=== PATIENT | male | born 1990 | race Caucasian/White ===

== ENCOUNTER 2016-12-21 17:05 | Emergency (ER) | payer OTHER ==
--- NOTE | 2016-12-21 17:10 | ED Physician Documentation ---
Hand Injury - HISTORIAN Historian: patient - HPI Stated Complaint: laceration Chief Complaint: Hand Injury Additional Information: laceration distal R 3rd finger Onset: just prior to arrival Where: home Severity: mild Context: laceration Location of Injury: R fingers Modifying Factors: none Further Comments: no - ROS CONST: other (sounds / smells inebriated) GI/: denies: problems urinating NEURO: none CVS/RESP: none LNMP: denies: EYES/ENT: none MS/SKIN/LYMPH: none - PAST HX Past History: none Allergies/Adverse Reactions: Allergies Allergy/AdvReac Type Severity Reaction Status Date / Time No Known Drug Allergies Allergy Verified 12/21/16 17:22 - SOCIAL HX Smoking History: cigarettes Alcohol Use: heavy Drug Use: none - FAMILY HX Family History: none - VITAL SIGNS Vital Signs: Vital Signs Temp Pulse Resp BP Pulse Ox 132/88 05/01/16 22:51 - REVIEWED ASSESSMENTS Nursing Assessment Reviewed: Yes Vitals Reviewed: Yes Procedures Wound Location: upper extremity Wound's Depth, Shape: irregular, flap Wound Explored: clean Betadine Prep?: Yes Anesthesia: 1% Lidocaine Wound Debrided: minimal Wound Repaired With: sutures Suture Size/Type: 4:0, nylon Number of Sutures: 5 Layer Closure?: No Sterile Dressing Applied?: Yes Splint Applied?: No Sling Applied?: No Hand Injury Physical Exam - Exam General Appearance: no acute distress, other (speaks inebriated) Wrist: normal inspection Neuro: sensation nml Vascular: no vascular compromise Tendons: tendon function nml Forearm/Elbow/Arm: uninjured above wrist Skin: warm/dry, normal color Head/ENT: nml inspection Neck/Back: nml inspection Resp/CVS: no resp. distress Abdomen: non-tender Discharge Clincal Impression: Laceration of finger of right hand Qualifiers: Encounter type: initial encounter Qualified Code(s): S61.219A - Laceration without foreign body of unspecified finger without damage to nail, initial encounter Condition: Good Disposition: 01 HOME, SELF-CARE Decision to Admit: NO Date of Decison to Admit: 12/21/16 Decision Time: 19:04
[2016-12-21] MEDS ORDERED: BUPIVACAINE HCL/PF 5 MG/ML 10ML VIAL IJ ONE (17:21)
[2016-12-21 19:03] VITALS: BP 102/70
== END 2016-12-21 19:06 | disposition home or self-care (01) ==
LOC: ED 17:05
DX: S61.219A Laceration without foreign body of unspecified finger without damage to nail, initial encounter (principal); X58.XXXA Exposure to other specified factors, initial encounter; Y93.9 Activity, unspecified; Y99.9 Unspecified external cause status; F17.210 Nicotine dependence, cigarettes, uncomplicated
CPT/HCPCS: 12001; 99283

== ENCOUNTER 2017-01-25 11:19 | Emergency (ER) | payer OTHER ==
--- NOTE | 2017-01-25 11:58 | ED Physician Documentation ---
Overdose - HISTORIAN Historian: patient, parent - HPI Stated Complaint: intoxicated Chief Complaint: Overdose Additional Information: found in public intoxicated. ambulance brought him here. Dad here, doesn't know what to do with him anymore. he has been thru many treatments. but refuses. Dad is here but doesn't know what to do with him. Patient wants to be discharged. dad will take him home. Onset: hours Duration: gradual onset Intent: no answer Severity: moderate Situational Problems: Yes Related To: other Further Comments: no - Associated Symptoms Symptoms: depressed, angry, frustrated Suicidal: denies: suicidal thoughts Ingestion: denies: suicide attempt Mechanism: overdose (drinks constantly) - ROS CONST: no problems NEURO/PSYCH: none EYES/ENT: none CVS/RESP: none GI/: denies: nausea, vomiting MS/SKIN/LYMPH: denies: joint pain - PAST HX Psychiatric problems: depression DVT/PE Risk Factors: none Lung, Cardiac, DM: denies: A-Fib Surgical History: no surgical history Allergies/Adverse Reactions: Allergies Allergy/AdvReac Type Severity Reaction Status Date / Time No Known Drug Allergies Allergy Verified 12/21/16 17:22 - Social HX Smoking History: cigarettes Marital Status: single Drug Use: none - Family HX Family HX: denies: mental illness - VITAL SIGNS Vital Signs: Vital Signs Temp Pulse Resp BP Pulse Ox 102/70 12/21/16 19:01 - REVIEWED ASSESSMENTS Nursing Assessment Reviewed: Yes Vitals Reviewed: Yes Progress - Results/Orders Results/Orders: disussed with parent the possibility of getting court ordered antibuse. He will talk to nuclear medicine specialist about it. Overdose Physical Exam - Physical Exam General Appearance: no acute distress, alert ENT: nml ENT inspection Eyes: EOM's intact Mental Status: No: hostile Suicide Attempts: denies Orientation: nml x3 Cranial Nerves: CN's intact as tested Sensory, Motor: nml motor response Neck: normal inspection Respiratory: no resp distress CVS: reg rate & rhythm, equal pulses, occasional extrasystoles Skin: warm/dry, normal color Extremities: non-tender Discharge Clincal Impression: ETOH abuse Alcohol intoxication Qualifiers: Complication of substance-induced condition: uncomplicated Qualified Code(s): F10.920 - Alcohol use, unspecified with intoxication, uncomplicated Referrals: Glynn Holman MD [Primary Care Provider] - 2 Days Condition: Good Disposition: HOME, SELF-CARE Decision to Admit: NO Date of Decison to Admit: 01/25/17 Decision Time: 11:57
[2017-01-25 12:42] VITALS: BP 132/94
== END 2017-01-25 12:04 | disposition home or self-care (01) ==
LOC: ED 11:19
DX: F10.920 Alcohol use, unspecified with intoxication, uncomplicated (principal)
CPT/HCPCS: 99283

== ENCOUNTER 2017-07-16 17:49 | Emergency (ER) | payer OTHER ==
[2017-07-16 18:04] VITALS: BP 125/95
--- NOTE | 2017-07-16 18:05 | ED Physician Documentation ---
Sore Throat/Dental Pain - HISTORIAN Historian: patient - HPI Stated Complaint: Dental Pain Chief Complaint: Dental Pain Onset: hours (1) Context: Fractured Tooth Associated Symptoms: denies: fever, chills, sore throat, mild Further Comments: yes (wants meds for his pain . Denies a fever. He is on amoxicillin and T3) - ROS CONST: no problems CVS/RESP: none MS/SKIN/LYMPH: denies: muscle aches, rash, leg swelling NEURO/PSYCH: headache - PAST HX Past History: none Other History: none Immunizations: referred to PCP Allergies/Adverse Reactions: Allergies Allergy/AdvReac Type Severity Reaction Status Date / Time No Known Drug Allergies Allergy Verified 01/25/17 12:39 Penicillins Allergy Verified 07/16/17 18:05 Home Medications: Ambulatory Orders Medication Instructions Recorded NK [NK] 07/16/17 - SOCIAL HX Smoking History: cigarettes Alcohol Use: other (denies) Drug Use: other (denies ) - FAMILY HX Family History: No - VITAL SIGNS Vital Signs: Vital Signs Temp Pulse Resp BP Pulse Ox 98.1 F 125 H 20 125/95 96 07/16/17 17:50 07/16/17 17:50 07/16/17 17:50 07/16/17 17:50 07/16/17 17:50 - REVIEWED ASSESSMENTS Nursing Assessment Reviewed: Yes Vitals Reviewed: Yes Dental Pain Physical Exam - EXAM General Appearance: no acute distress, alert Head/Neck: head nml inspection Eyes: eyes nml inspection Mouth/Throat: other (dental decay and several broken teeth ) Respiratory: no resp. distress, breath sounds nml, respiratory distress CVS: tachycardia (denies any chest pain ) Abdomen: soft Extremities: non-tender Skin: other (open skin areas on both arms ) Neuro/Psych: No: weakness, anxiety Discharge Clincal Impression: Dental abscess Referrals: Primary Doctor,No [Primary Care Provider] - 2 Days Condition: Stable Disposition: 07 AGAINST MEDICAL ADVICE Decision to Admit: NO Date of Decison to Admit: 07/16/17 Decision Time: 18:15
== END 2017-07-16 18:10 | disposition left against medical advice (07) ==
LOC: ED 17:49
DX: K08.89 Other specified disorders of teeth and supporting structures (principal); Z53.21 Procedure and treatment not carried out due to patient leaving prior to being seen by health care provider
CPT/HCPCS: 99283

== ENCOUNTER 2017-12-20 23:53 | Emergency (ER) | payer SELFPAY ==
--- NOTE | 2017-12-21 00:38 | ED Physician Documentation ---
Upper Respiratory Symptoms - HISTORIAN Historian: patient - HPI Stated Complaint: soa Chief Complaint: Cough/ Upper Respiratory - ROS CONST/EYES: denies: weakness CVS/RESP: none LYMPH: denies: leg swelling, rash, swollen glands, ankle swelling, other GI/: none NEURO/PSYCH: denies: fainting, dizziness, confusion, anxiety, depression, other MS/SKIN: denies: joint pain, muscle aches, rash, other - PAST HX Lung Disease: none PE Risk Factors: none Other History: other (anxiety) Allergies/Adverse Reactions: Allergies Allergy/AdvReac Type Severity Reaction Status Date / Time Penicillins Allergy Verified 12/21/17 00:09 Home Medications: Ambulatory Orders Medication Instructions Recorded Hydroxyzine Pamoate [Vistaril] 25 mg PO D 12/21/17 - SOCIAL HX Smoking History: cigarettes Alcohol Use: heavy - FAMILY HX Family History: denies: none - VITAL SIGNS Vital Signs: Vital Signs Temp Pulse Resp BP Pulse Ox 97.5 F L 115 H 20 151/105 97 12/20/17 23:53 12/20/17 23:53 12/20/17 23:53 12/20/17 23:53 12/20/17 23:53 - REVIEWED ASSESSMENTS Nursing Assessment Reviewed: Yes Vitals Reviewed: Yes ED Results Lab/Radiology - Radiology Radiology Impressions: Ap portable upright radiographs of the chest Clinical history: Shortness of breath Technique: anterior /posterior portable upright Findings: The lung garza are hyperinflated and clear. The heart and mediastinal structures are normal. The bony thorax is unremarkable. No pneumothorax or pleural effusion is seen. Impression: Hyperinflation Negative for infiltrate Electronically signed on December 21, 2017 12:27:15 AM CDT by: Jacinto Jordan - Orders Orders: ED Orders Category Date Time Status CHEST 2VIEW [RAD] Stat Exams 12/21/17 Ordered UA W/MICRO IF INDICATED Stat Lab 12/21/17 00:36 Ordered Urine drug screen [DRUG SCREEN URINE MEDICAL ONLY] Stat Lab 12/21/17 00:36 Ordered Upper Respiratory Symptoms - EXAM General Appearance: anxious, other (strong smell of ETOH) EENT: eyes nml inspection, nml ENT inspection, lids & conjunct. nml, PERRL, ear nml, rhinorrhea, pharynx nml, airway nml, pharyngeal erythema (mild). No: tonsillar exudate, tonsillar swelling Respiratory: no resp. distress, breath sounds nml, no pain on inspiration, speaks full sentences, no pleuritic chest pain Abdomen: non-tender, no organomegaly, nml bowel sounds, no distention CVS: heart sounds normal, equal pulses, no murmur, no gallop, PMI nml, no JVD, no friction rub, tachycardia Skin: color nml, no rash, warm,dry Extremities: non-tender, normal range of motion, no evidence of injury, no edema , J, [employer] Neuro/Psych: oriented x3, neuro intact, mood/affect nml, CN's nml as tested Discharge Clincal Impression: Seasonal allergic rhinitis Qualifiers: Allergic rhinitis trigger: pollen Qualified Code(s): J30.1 - Allergic rhinitis due to pollen Referrals: Primary Doctor,No [Primary Care Provider] - 2 Days Condition: Stable Disposition: 01 HOME, SELF-CARE Decision to Admit: NO Decision Time: 00:37
[2017-12-21 01:00] VITALS: BP 149/22
[2017-12-21 06:40] LABS: CANNABINOIDS NEGATIVE ng/mL (< 50); METHYLENEDIOXYMETHAMPHETAMINE NEGATIVE ng/mL (<500)
--- NOTE | 2017-12-21 06:45 | Diagnostic Imaging Report ---
SHAY THURMAN (INSTRUCTIONAL COACH) - ER [facility] [id number] [facility] [address] [address] [place], [place]. [address] Report Submission Date: December 21, 2017 12:27:15 AM CDT Patient Study Name: RANJEET BETH Date: December 21, 2017 12:11:45 AM CDT Modality Type: DX Gender: M Description: CHEST : 86 Institution: [facility] Physician: SHAY THURMAN (INSTRUCTIONAL COACH) - ER Ap portable upright radiographs of the chest Clinical history: Shortness of breath Technique: anterior /posterior portable upright Findings: The lung garza are hyperinflated and clear. The heart and mediastinal structures are normal. The bony thorax is unremarkable. No pneumothorax or pleural effusion is seen. Impression: Hyperinflation Negative for infiltrate Electronically signed on December 21, 2017 12:27:15 AM CDT by: Jacinto CROOK
== END 2017-12-21 00:40 | disposition home or self-care (01) ==
LOC: ED 23:53
DX: J30.1 Allergic rhinitis due to pollen (principal)
CPT/HCPCS: 71046; 80377; 99282; G0481

== ENCOUNTER 2018-04-23 11:09 | Emergency (ER) | payer OTHER ==
[2018-04-23] MEDS ORDERED: 0.9 % SODIUM CHLORIDE 1,000 ML IV ONE (11:30)
--- NOTE | 2018-04-23 11:37 | ED Physician Documentation ---
General Adult - HISTORIAN Historian: patient - HPI Stated Complaint: cough, fatigue, bruise, sweating Chief Complaint: Cough/ Upper Respiratory Onset: days ago (2) Timing: still present Severity: mild Further Comments: yes (Per his report he is having "hot flashes" he feels that he has had a fever and then it drops and he sweats. He also reports a cough that is dry x 1 week. He has a bruise on his left leg/groin he is not sure where this started and it does have pain to touch. He has fatigue.) - ROS CONST: fever, sweating EYES/ENT: none CVS/RESP: cough. denies: chest pain GI/: none MS/SKIN/LYMPH: other (he has a large bruise on his right leg /groin). denies: rash NEURO/PSYCH: denies: headache, fainting, dizziness, tingling, numbness, difficulty walking, difficulty with speech - PAST HX Past History: other (anxiety and GERD ) Surgeries/Procedures: none Immunizations: UTD Allergies/Adverse Reactions: Allergies Allergy/AdvReac Type Severity Reaction Status Date / Time Penicillins Allergy Verified 04/23/18 11:27 Home Medications: Ambulatory Orders Medication Instructions Recorded Hydroxyzine Pamoate [Vistaril] 25 mg PO D 12/21/17 - SOCIAL HX Smoking History: cigarettes Alcohol Use: occasionally Drug Use: none - FAMILY HX Family History: No - VITAL SIGNS Vital Signs: Vital Signs Temp Pulse Resp BP Pulse Ox 149/22 12/21/17 00:53 - REVIEWED ASSESSMENTS Nursing Assessment Reviewed: Yes Vitals Reviewed: Yes ED Results Lab/Radiology - Radiology Radiology Impressions: Chest two views History: Chest pain and cough for 1 week Findings: The lungs are well expanded and clear. Heart size and pulmonary vascularity are normal. Osseous structures are unremarkable. There is no pleural effusion. Impression: Normal. Electronically signed on Apr 23, 2018 12:33:46 PM CDT by: Taqueria Kwon - Orders Orders: ED Orders Category Date Time Status Place IV Lock 1T Care 04/23/18 11:30 Active CBC/PLATELET/DIFF Routine Lab 04/23/18 Ordered CMP Routine Lab 04/23/18 Ordered DRUG SCREEN URINE MEDICAL ONLY Routine Lab 04/23/18 Ordered URINALYSIS Routine Lab 04/23/18 Ordered 0.9 % Sodium Chloride [Normal Saline] 1,000 ml Med 04/23/18 11:30 Active IV Q1H General Adult Physical Exam - PHYSICAL EXAM GENERAL APPEARANCE: no distress EENT: eye inspection normal, ENT inspection normal, no signs of dehydration, JAH. No: pharyngeal erythema, abnormal TM NECK: normal inspection, thyroid normal RESPIRATORY: no resp distress, chest non-tender, breath sounds normal CVS: reg rate & rhythm, heart sounds normal, equal pulses, no murmur ABDOMEN: soft, normal bowel sounds BACK: normal inspection SKIN: warm/dry, other (large yellow/green bruise on right groin/right upper leg ) NEURO: oriented X3, CN's nml as tested, motor nml, sensation nml, mood/affect nml Discharge Clincal Impression: Hypertension Qualifiers: Hypertension type: unspecified Qualified Code(s): I10 - Essential (primary) hypertension Referrals: Primary Doctor,No [Primary Care Provider] - 2 Days Additional Instructions: 1. Clonidine 0.1 mg take 1 by mouth daily for hypertension Top number over 150 and bottom number over 90 2. See PCP in 2-4 days for follow up 3. Increase fluids 4. Return to ER for any concerns Condition: Stable Disposition: 01 HOME, SELF-CARE Decision to Admit: NO Date of Decison to Admit: 04/23/18 Decision Time: 14:14
[2018-04-23 12:12] LABS: BASOPHILS % 0.5 (0.0-1.5); EOSINOPHILS % 2.1 % (0.0-6.8); MEAN CORPUSCULAR VOLUME 92.6 fl (80.0-100.0)
[2018-04-23 12:13] LABS: NEUTROPHILS # 5.8 # k/uL (1.4-7.7)
[2018-04-23 12:33] LABS: eGFR (African) > 60; eGFR (Non-African) > 60
[2018-04-23] MEDS ORDERED: CloNIDine HCL 0.1 MG TABLET PO ONE (12:52)
--- NOTE | 2018-04-23 12:53 | Diagnostic Imaging Report ---
YUE COSTA [facility] [address] [facility] [address] [place], [place]. [address] Report Submission Date: Apr 23, 2018 12:33:46 PM CDT Patient Study Name: RANJEET BETH Date: Apr 23, 2018 12:11:17 PM CDT Modality Type: DX Gender: M Description: CHEST : 86 Institution: [facility] Physician: YUE COSTA Chest two views History: Chest pain and cough for 1 week Findings: The lungs are well expanded and clear. Heart size and pulmonary vascularity are normal. Osseous structures are unremarkable. There is no pleural effusion. Impression: Normal. Electronically signed on Apr 23, 2018 12:33:46 PM CDT by: Taqueria CROOK
[2018-04-23 14:18] VITALS: BP 139/92
[2018-04-24 06:55] LABS: APPEARANCE,URINE CLEAR (CLEAR); CANNABINOIDS NEGATIVE ng/mL (< 50); COLOR,URINE YELLOW (YELLOW); METHYLENEDIOXYMETHAMPHETAMINE NEGATIVE ng/mL (<500); OCCULT BLOOD,URINE NEGATIVE (NEGATIVE); UROBILINOGEN URINE 0.2 Eu (0.2-1.0)
== END 2018-04-23 14:16 | disposition home or self-care (01) ==
LOC: ED 11:09
DX: I10 Essential (primary) hypertension (principal)
CPT/HCPCS: 71046; 80053; 80320; 80377; 81002; 84484; 85025; J7030; 96365; 99284; G0480; G0481; S1016

== ENCOUNTER 2019-03-11 15:46 | Emergency (ER) | payer OTHER ==
[2019-03-11] MEDS ORDERED: MAG HYDROX/ALUMINUM HYD/SIMETH 30 ML UDC PO ONE (15:54)
[2019-03-11] MEDS ORDERED: PANTOPRAZOLE SODIUM 40 MG TABLET.DR PO ONE (15:54)
[2019-03-11] MEDS ORDERED: METOPROLOL TARTRATE 5 MG/5 ML VIAL IV ONE (15:55)
[2019-03-11] MEDS ORDERED: SIMETHICONE 80 MG TAB.CHEW PO ONE (15:56)
--- NOTE | 2019-03-11 16:10 | ED Physician Documentation ---
Abdominal Pain - HISTORIAN Historian: patient, paramedics - HPI Stated Complaint: epigastric pain Chief Complaint: Abdominal Pain Additonal Information: Patient presents to ED a 2 hour history of epigastric pain (burning, 6/10) ra diating to his chest after eating on a pot of chili for the past 2 days. Patient states he took his antacid without any improvement so he called 911. Patient has a history of gastritis, HTN, and alcohol abuse. Onset: hours (1) Duration: constant Timing: still present Context: denies: out of country travel, bad food Severity: moderate Quality: pain, burning Associated Symptoms: denies: none, nausea, vomiting, diarrhea Exacerbated by: nothing Relieved by: nothing - ROS CONST: no problems GI/: none CVS/RESP: none EYES/ENT: none MS/SKIN/LYMPH: none NEURO/PSYCH: none - SOCIAL HX Smoking History: cigarettes, greater than 1 pack/day Alcohol Use: heavy Drug Use: methamphetamines - FAMILY HX Family History: none - PAST HX Past History: none Ischemic Bowel Risk Factors: none Other History: none Surgeries/Procedures: none Home Medications: Ambulatory Orders Medication Instructions Recorded Hydroxyzine Pamoate [Vistaril] 25 mg PO D 12/21/17 Propranolol HCl [Inderal] 20 mg PO QD 04/23/18 Allergies/Adverse Reactions: Allergies Allergy/AdvReac Type Severity Reaction Status Date / Time Penicillins Allergy Rash Verified 03/11/19 16:41 - VITAL SIGNS Vital Signs: Vital Signs Temp Pulse Resp BP Pulse Ox 99.1 F 69 16 121/90 93 03/11/19 15:46 03/11/19 16:30 03/11/19 16:30 03/11/19 16:30 03/11/19 16:30 - REVIEWED ASSESSMENTS Nursing Assessment Reviewed: Yes Vitals Reviewed: Yes Progress - Results/Orders Results/Orders: UDS -negative for all tested substances. - Progress Progress: 1730 Patient feeling better. Will give another NS liter of fluid due to 298 blood alcohol level. - EKG/XRAY/CT EKG: NSR Comments: 1553 NSR 89 bpm, no ST changes ED Results Lab/Radiology - Lab Results Lab Results: Lab Results 03/11/19 03/11/19 03/11/19 16:15 15:50 15:50 WBC RBC Hgb Hct MCV MCH MCHC RDW Plt Count Neut % (Auto) Lymph % (Auto) [place] % (Auto) Eos % (Auto) Baso % (Auto) Neut # (Auto) Lymph # (Auto) [place] # (Auto) Eos # (Auto) Baso # (Auto) Sodium 142 mmol/L mmol/L (137-145) Potassium 3.7 mmol/L mmol/L (3.5-5.1) Chloride 106 mmol/L mmol/L (98-107) Carbon Dioxide 28 mmol/L mmol/L (22-30) Anion Gap 11.7 mmol/L H mmol/L (3-11) BUN 9 mg/dL mg/dL (9-20) Creatinine 0.70 mg/dL mg/dL (0.66-1.25) Est GFR ( Amer) > 60 (60 - ) Est GFR (Non-Af Amer) > 60 (60 - ) Glucose 160 mg/dL H mg/dL (74-106) Calcium 8.1 mg/dL L mg/dL (8.4-10.2) Total Bilirubin 0.3 mg/dL mg/dL (0.2-1.3) AST 99 U/L H U/L (15-46) ALT 83 U/L H U/L (13-69) Alkaline Phosphatase 80 U/L U/L (38-126) Troponin I 0.014 ng/mL ng/mL (0.012-0.034) Total Protein 6.7 g/dL g/dL (6.3-8.2) Albumin 4.0 g/dL g/dL (3.5-5.0) Opiates Screen Negative ng/mL ng/mL (<300) Oxycodone Screen Negative ng/mL ng/mL (<100) Methadone Screen Negative ng/mL ng/mL (<200) Ur Barbiturates Screen Negative ng.mL ng.mL (<200) Tricyclic Antidepress Negative ng/mL ng/mL (<300) Phencyclidine Screen Negative ng/mL ng/mL (< 25) Amphetamines Screen Negative ng/mL ng/mL (<500) U Methamphetamines Scrn Negative ng/mL ng/mL (<500) MDMA Negative ng/mL ng/mL (<500) Benzodiazepines Screen Negative ng/mL ng/mL (<150) Urine Cocaine Screen Negative ng/mL ng/mL (<150) U Cannabinoids Screen Negative ng/mL ng/mL (< 50) Ethyl Alcohol 298.7 mg/dL H mg/dL (0.0-10.0) 03/11/19 15:50 WBC 5.90 K/ul K/ul (4.00-12.00) RBC 4.27 M/ul M/ul (3.90-5.20) Hgb 13.6 g/dL g/dL (12.0-18.0) Hct 39.6 % % (37.0-53.0) MCV 93.0 fl fl (80.0-100.0) MCH 31.9 pg pg (28.0-34.0) MCHC 34.3 g/dL g/dL (30.0-36.0) RDW 12.6 % % (11.3-14.3) Plt Count 118 K/mm3 L K/mm3 (130-400) Neut % (Auto) 66.8 % % (39.0-79.0) Lymph % (Auto) 20.1 % % (16.0-50.0) [place] % (Auto) 11.2 % H % (0.0-11.0) Eos % (Auto) 1.6 % % (0.0-6.8) Baso % (Auto) 0.3 % % (0.0-1.5) Neut # (Auto) 4.0 # k/uL # k/uL (1.4-7.7) Lymph # (Auto) 1.2 # k/uL # k/uL (0.6-4.0) [place] # (Auto) 0.7 # k/uL # k/uL (0.0-0.9) Eos # (Auto) 0.1 # k/uL # k/uL (0.0-0.6) Baso # (Auto) 0.0 # k/uL # k/uL (0.0-0.5) Sodium Potassium Chloride Carbon Dioxide Anion Gap BUN Creatinine Est GFR ( Amer) Est GFR (Non-Af Amer) Glucose Calcium Total Bilirubin AST ALT Alkaline Phosphatase Troponin I Total Protein Albumin Opiates Screen Oxycodone Screen Methadone Screen Ur Barbiturates Screen Tricyclic Antidepress Phencyclidine Screen Amphetamines Screen U Methamphetamines Scrn MDMA Benzodiazepines Screen Urine Cocaine Screen U Cannabinoids Screen Ethyl Alcohol - Orders Orders: ED Orders Category Date Time Status ALCOHOL MEDICAL USE ONLY Stat Lab 03/11/19 15:50 Completed CBC/PLATELET/DIFF Routine Lab 03/11/19 15:50 Completed CMP Routine Lab 03/11/19 15:50 Completed TROPONIN I Stat Lab 03/11/19 15:50 Completed UDS [DRUG SCREEN URINE MEDICAL ONLY] Routine Lab 03/11/19 16:15 Completed 0.9 % Sodium Chloride [Normal Saline] 1,000 ml Med 03/11/19 17:26 Active IV Q1H Mag Hydrox/Aluminum Hyd/Simeth [Mylanta] Med 03/11/19 15:54 Discontinued 30 ml PO NOW ONE Metoprolol Tartrate [Lopressor] Med 03/11/19 15:55 Discontinued 5 mg IV NOW ONE Pantoprazole Sodium [Protonix] Med 03/11/19 15:54 Discontinued 40 mg PO NOW ONE Simethicone [Gas-X] Med 03/11/19 15:56 Discontinued 80 mg PO NOW ONE EKG WITH COMPARISON Stat Ther 03/11/19 Ordered Abdominal Pain Physical Exam - Physical Exam General Appearance: no acute distress, alert EENT: JAH, dry mucous membranes NECK: supple RESPIRATORY: no resp distress, chest non-tender, breath sounds normal CVS: tachycardia ABDOMEN: soft, normal bowel sounds, non-tender SKIN: warm/dry, normal color EXTREMITIES: non-tender, no edema, other (multiple pin point lesions over anterior low extremities bilaterally) NEURO: oriented X3, depressed mood/affect, other (slow to respond to questions, slurred speech. ) Vital Signs: Vital Signs Temp Pulse Resp BP Pulse Ox 99.1 F 69 16 121/90 93 03/11/19 15:46 03/11/19 16:30 03/11/19 16:30 03/11/19 16:30 03/11/19 16:30 Discharge Clincal Impression: Alcoholic gastritis without bleeding Qualifiers: Chronicity: acute Qualified Code(s): K29.20 - Alcoholic gastritis without bleeding Alcohol intoxication Qualifiers: Complication of substance-induced condition: uncomplicated Qualified Code(s): F10.920 - Alcohol use, unspecified with intoxication, uncomplicated Referrals: Primary Doctor,No [Primary Care Provider] - 2 Days Additional Instructions: 1. Take Prilosec 20mg by mouth daily for next 6 weeks 2. Avoid Alcohol, caffeine, tobacco use, chocolate, spicy foods 3. Follow up with PCP within 1week. Discuss referral to Gastroenterology for evaluation for EGD (upper gastric scope) 4. Return to ER for new or worsening symptoms Condition: Stable Disposition: 01 HOME, SELF-CARE Decision to Admit: NO Date of Decison to Admit: 03/11/19 Decision Time: 17:39
[2019-03-11 16:13] LABS: BASOPHILS % 0.3 % (0.0-1.5)
[2019-03-11 16:31] LABS: eGFR (Non-African) > 60
[2019-03-11 16:41] LABS: CANNABINOIDS NEGATIVE ng/mL (< 50); METHYLENEDIOXYMETHAMPHETAMINE NEGATIVE ng/mL (<500)
[2019-03-11] MEDS ORDERED: 0.9 % SODIUM CHLORIDE 1,000 ML IV ONE (17:26)
[2019-03-11 18:49] VITALS: BP 133/97
== END 2019-03-11 18:30 | disposition home or self-care (01) ==
LOC: ED 15:46
DX: K29.20 Alcoholic gastritis without bleeding (principal); F10.920 Alcohol use, unspecified with intoxication, uncomplicated; Y90.9 Presence of alcohol in blood, level not specified
CPT/HCPCS: 80053; 80320; 80377; 84484; 85025; 93005; J3490; J7030; 96361; 96374; 99284; G0480; G0481

== ENCOUNTER 2019-03-12 03:33 | Emergency (ER) | payer OTHER ==
[2019-03-12] MEDS ORDERED: 0.9 % SODIUM CHLORIDE 1,000 ML IV ONE (03:50)
[2019-03-12] MEDS ORDERED: cloNIDine HCL 0.1 MG TABLET PO ONE (03:53)
--- NOTE | 2019-03-12 03:57 | ED Physician Documentation ---
General Adult - HISTORIAN Historian: patient - HPI Stated Complaint: Rigors Chief Complaint: General Adult Additional Information: Patient presents to ED with shaking and stating, "something is really wrong with my stomach". Patient was seen 13 hours ago with epigastric pain and alcohol intoxication. Work up was negative for ACS. Antacids and PPI resolved epigastric pain. Initial blood pressure is 180/115. Patient is wearing khaki pants, a sweater with a flannel shirt over it. The heat index today was 102. Onset: hours (13) Timing: still present, worse Severity: moderate - ROS CONST: denies: fever EYES/ENT: none CVS/RESP: none GI/: none MS/SKIN/LYMPH: none NEURO/PSYCH: denies: headache - PAST HX Past History: none Other History: none Surgeries/Procedures: none Allergies/Adverse Reactions: Allergies Allergy/AdvReac Type Severity Reaction Status Date / Time Penicillins Allergy Rash Verified 03/12/19 03:47 Home Medications: Ambulatory Orders Medication Instructions Recorded Hydroxyzine Pamoate [Vistaril] 25 mg PO D 12/21/17 Propranolol HCl [Inderal] 20 mg PO QD 04/23/18 - SOCIAL HX Smoking History: cigarettes Alcohol Use: heavy Drug Use: methamphetamines - FAMILY HX Family History: No - VITAL SIGNS Vital Signs: Vital Signs Temp Pulse Resp BP Pulse Ox 98.7 F 99 H 20 180/120 98 03/12/19 03:33 03/12/19 03:33 03/12/19 03:33 03/12/19 03:33 03/12/19 03:33 - REVIEWED ASSESSMENTS Nursing Assessment Reviewed: Yes Vitals Reviewed: Yes Progress - Progress Progress: 0530 Patient more alert and coherent now. States he needs to urinate. CT shows severe diffuse constipation. will give dulcolax suppository. ED Results Lab/Radiology - Radiology Radiology Impressions: Report Submission Date: Mar 12, 2019 4:44:28 AM CDT Patient Study Name: RANJEET BETH Date: Mar 12, 2019 4:21:46 AM CDT Modality Type: CT\\SR Gender: M Description: CT ABD PELVIS W/ CON : 86 Institution: [facility] Physician: LACHELLE FINE CT abdomen and pelvis with contrast History: Epigastric pain. Technique: Helically acquired images were obtained from the hemidiaphragms to the pelvic floor following IV but no oral contrast. There is severe motion artifact. Per the technologist, the patient would not remains still or follow breathing instructions. There is diffuse hepatic steatosis. The spleen, gallbladder, adrenal glands, pancreas and kidneys are unremarkable. Assessment of bowel loops is limited due to the severe degree of motion. However, there is a large amount of stool throughout the entire colon consistent with moderately severe constipation. No dilated small bowel loops are noted. The appendix is visualized and appears normal. No abnormalities of the stomach are evident. The abdominal aorta is normal in caliber. No free fluid is noted in the abdomen or pelvis. The bladder, seminal vesicles and prostate gland are unremarkable. Lung bases are clear. Small sclerotic foci are noted of the femoral heads bilaterally and of the posterior left acetabulum, most consistent with bone islands in this young patient. Impression: The examination is quite limited as there is severe motion. Diffuse hepatic steatosis. Moderately severe constipation. Normal appendix. Electronically signed on Mar 12, 2019 4:44:28 AM CDT by: Priya Li - Orders Orders: ED Orders Category Date Time Status Place IV Lock 1T Care 03/12/19 03:[address] ABD & PELVIS W/ CON Stat Exams 03/12/19 Ordered ALCOHOL MEDICAL USE ONLY Stat Lab 03/12/19 Ordered CBC/PLATELET/DIFF Routine Lab 03/12/19 Ordered CMP [CMP] Routine Lab 03/12/19 Ordered NORMAL SALINE @ 1000 MLS/HR ( 1000ml BOLUS) Med 03/12/19 03:50 Ordered 0.9 % Sodium Chloride [Normal Saline] 1,000 ml IV Q1H cloNIDine HCL [Catapress] Med 03/12/19 03:53 Once 0.1 mg PO NOW ONE General Adult Physical Exam - PHYSICAL EXAM GENERAL APPEARANCE: no distress EENT: other (pupils equal sluggish) NECK: supple. No: lymphadenopathy RESPIRATORY: no resp distress, chest non-tender, breath sounds normal CVS: reg rate & rhythm, heart sounds normal ABDOMEN: soft, abnormal bowel sounds (decreased), decreased BS BACK: normal inspection SKIN: normal color, diaphoresis EXTREMITIES: non-tender NEURO: oriented X3, speech/cognition abnml (slow, slurred speech) Discharge Clincal Impression: Constipation Qualifiers: Constipation type: other constipation type Qualified Code(s): K59.09 - Other constipation Referrals: Primary Doctor,No [Primary Care Provider] - 2 Days Additional Instructions: 1. Eat 5 servings of fruits and vegetables daily 2. Drink plenty of water daily. Target intake is 2 liters daily 3. Follow up with PCP within 1 week 4. Return to ER for new or worsening symptoms. Condition: Stable Decision to Admit: NO Date of Decison to Admit: 03/12/19 Decision Time: 05:40
--- NOTE | 2019-03-12 04:48 | Diagnostic Imaging Report ---
LACHELLE FINE [facility] [address] [facility] [address] [place], [place]. [address] Report Submission Date: Mar 12, 2019 4:44:28 AM CDT Patient Study Name: RANJEET BETH Date: Mar 12, 2019 4:21:46 AM CDT Modality Type: CT\SR Gender: M Description: CT ABD PELVIS W/ CON : 88 Institution: [facility] Physician: LACHELLE FINE CT abdomen and pelvis with contrast History: Epigastric pain. Technique: Helically acquired images were obtained from the hemidiaphragms to the pelvic floor following IV but no oral contrast. There is severe motion artifact. Per the technologist, the patient would not remains still or follow breathing instructions. There is diffuse hepatic steatosis. The spleen, gallbladder, adrenal glands, pancreas and kidneys are unremarkable. Assessment of bowel loops is limited due to the severe degree of motion. However, there is a large amount of stool throughout the entire colon consistent with moderately severe constipation. No dilated small bowel loops are noted. The appendix is visualized and appears normal. No abnormalities of the stomach are evident. The abdominal aorta is normal in caliber. No free fluid is noted in the abdomen or pelvis. The bladder, seminal vesicles and prostate gland are unremarkable. Lung bases are clear. Small sclerotic foci are noted of the femoral heads bilaterally and of the posterior left acetabulum, most consistent with bone islands in this young patient. Impression: The examination is quite limited as there is severe motion. Diffuse hepatic steatosis. Moderately severe constipation. Normal appendix. Electronically signed on Mar 12, 2019 4:44:28 AM CDT by: Priya CROOK
[2019-03-12 04:58] LABS: BASOPHILS % 0.4 % (0.0-1.5); NEUTROPHILS # 4.2 # k/uL (1.4-7.7)
[2019-03-12 05:00] LABS: eGFR (Non-African) > 60
[2019-03-12] MEDS ORDERED: BISACODYL 10 MG SUPP.RECT RC ONE (05:25)
[2019-03-12] MEDS ORDERED: MAG HYDROX/ALUMINUM HYD/SIMETH 30 ML UDC PO ONE (05:34)
[2019-03-12 06:46] VITALS: BP 160/117
== END 2019-03-12 06:47 ==
LOC: ED 03:33
DX: K59.00 Constipation, unspecified (principal); F10.129 Alcohol abuse with intoxication, unspecified; Y90.6 Blood alcohol level of 120-199 mg/100 ml
CPT/HCPCS: 74177; 80053; 80320; 85025; 96360; 99284; J7030; Q9967; G0480; S1016

== ENCOUNTER 2019-04-19 20:25 | Emergency (ER) | payer OTHER ==
--- NOTE | 2019-04-19 20:37 | ED Physician Documentation ---
General Adult - HISTORIAN Historian: patient - HPI Stated Complaint: nausea, difficulty urinating Chief Complaint: General Adult Additional Information: Patient presents to ED with nausea and difficulty urinating since yesterday. Father brought son in to [facility] with concerns about his alcohol consumption. Patient has small frontal scalp laceration which he states he did yesterday when he fell. Patient denies fever, chills, vomiting, diarrhea, abdominal pain, shortness of breath or chest pain. Last tetanus was in 2012. Onset: hours (24) Timing: still present Severity: moderate - ROS CONST: denies: fever, recent illness EYES/ENT: denies: problems with vision CVS/RESP: denies: chest pain, shortness of breath GI/: problems urinating, nausea. denies: abdominal pain, vomiting MS/SKIN/LYMPH: none NEURO/PSYCH: denies: headache - PAST HX Past History: other (alcoholism) Other History: none Surgeries/Procedures: none Allergies/Adverse Reactions: Allergies Allergy/AdvReac Type Severity Reaction Status Date / Time Penicillins Allergy Rash Verified 03/12/19 03:47 - SOCIAL HX Smoking History: chew Alcohol Use: none Drug Use: none - FAMILY HX Family History: No - VITAL SIGNS Vital Signs: Vital Signs Temp Pulse Resp BP Pulse Ox 160/117 03/12/19 06:44 - REVIEWED ASSESSMENTS Nursing Assessment Reviewed: Yes Vitals Reviewed: Yes Progress - Progress Progress: 2115 Patient wants to go home. RN convinced him to stay to get fluids. ED Results Lab/Radiology - Lab Results Lab Results: TOM >300.00 General Adult Physical Exam - PHYSICAL EXAM GENERAL APPEARANCE: disheveled EENT: JAH, other (1 cm superficial laceration frontal center scalp. Dried blood) NECK: No: lymphadenopathy RESPIRATORY: no resp distress, chest non-tender, breath sounds normal CVS: tachycardia ABDOMEN: soft, normal bowel sounds, non-tender BACK: normal inspection, no CVA tenderness SKIN: warm/dry, normal color, other (scattered pin point lesions on anterior legs bilaterally in various stages of healing) EXTREMITIES: non-tender NEURO: oriented X3, speech/cognition abnml (slurred speech, slow to respond to questions) Discharge Clincal Impression: Alcohol intoxication Qualifiers: Complication of substance-induced condition: uncomplicated Qualified Code(s): F10.920 - Alcohol use, unspecified with intoxication, uncomplicated Referrals: Primary Doctor,No [Primary Care Provider] - 2 Days Additional Instructions: 1. Drink plenty of fluids to maintain proper hydration. 2. Take a daily Thiamine and folic acid supplement 3. Avoid alcohol 4. Follow up with PCP within 1 week 5. Return to ER for new or worsening symptoms Condition: Stable Disposition: 01 HOME, SELF-CARE Decision to Admit: NO Date of Decison to Admit: 04/19/19 Decision Time: 21:27
[2019-04-19] MEDS: ONDANSETRON HCL/PF 4 MG/ 2ML VIAL IVP ONE (21:05)
[2019-04-19] MEDS: FOLIC ACID 5 MG/1 ML IV ONE (21:09)
[2019-04-19] MEDS: THIAMINE HCL 100 MG, MULTIVIT INFUSN,ADULT 1,VIT K 10 ML, FOLIC ACID 5 MG in 0.9 % SODI... IV SCH (21:09)
[2019-04-19] MEDS: THIAMINE HCL 200 MG/2 ML VIAL IV ONE (21:10)
[2019-04-19] MEDS: MULTIVIT INFUSN,ADULT 1,VIT K 10 ML VIAL IV ONE (21:10)
[2019-04-19] MEDS: 0.9 % SODIUM CHLORIDE 1,000 ML IV ONE (21:32)
[2019-04-19] MEDS: DIPH,PERTUSS(ACELL),TET VAC/PF 0.5 ML DISP.SYRIN IM ONE (21:33)
[2019-04-19 22:14] VITALS: BP 131/93
[2019-04-20 06:18] LABS: BASOPHILS % 0.7 % (0.0-1.5); NEUTROPHILS # 6.5 # k/uL (1.4-7.7); eGFR (Non-African) > 60
[2019-04-20 06:21] LABS: APPEARANCE,URINE CLEAR (CLEAR); COLOR,URINE YELLOW (YELLOW); OCCULT BLOOD,URINE NEGATIVE (NEGATIVE); UROBILINOGEN URINE 0.2 Eu (0.2-1.0)
== END 2019-04-19 21:45 | disposition home or self-care (01) ==
LOC: ED 20:25
DX: F10.920 Alcohol use, unspecified with intoxication, uncomplicated (principal)
CPT/HCPCS: 80053; 80320; 81002; 85025; 90715; 96360; 96372; 96374; 99282; 99284; J2405; J3411; J3490; G0480; J7030; S1016

== ENCOUNTER 2019-08-23 04:13 | Emergency (ER) | payer OTHER ==
[2019-08-23] MEDS ORDERED: THIAMINE HCL 200 MG/2 ML VIAL ONE (04:38)
[2019-08-23] MEDS ORDERED: 0.9 % SODIUM CHLORIDE 1,000 ML IV ONE (04:38)
[2019-08-23] MEDS ORDERED: FOLIC ACID 5 MG/1 ML ONE (04:40)
[2019-08-23] MEDS ORDERED: THIAMINE HCL 100 MG, MULTIVIT INFUSN,ADULT 1,VIT K 10 ML, FOLIC ACID 5 MG in 0.9 % SODI... IV ONE (04:40)
[2019-08-23] MEDS ORDERED: ONDANSETRON HCL/PF 4 MG/ 2ML VIAL IVP ONE (04:40)
[2019-08-23] MEDS ORDERED: MULTIVIT INFUSN,ADULT 1,VIT K 10 ML VIAL IV ONE (04:40)
--- NOTE | 2019-08-23 04:43 | ED Physician Documentation ---
General Adult - HISTORIAN Historian: patient - HPI Chief Complaint: General Adult Additional Information: 29 year old presents via [facility] with c/o "not feeling well". He has been drinking the last 2 days; states he has had a few shots each day; vomiting x 2 yesterday; he states that he feels like someone has poisoned him; seems to be a little intoxicated. Onset: hours Timing: still present Severity: mild Modifying Factors: alcohol - ROS CONST: fever, chills EYES/ENT: none CVS/RESP: none GI/: vomiting, nausea MS/SKIN/LYMPH: none NEURO/PSYCH: denies: headache, dizziness - PAST HX Past History: other (alcoholism) Surgeries/Procedures: other (dental work) Allergies/Adverse Reactions: Allergies Allergy/AdvReac Type Severity Reaction Status Date / Time Penicillins Allergy Rash Verified 03/12/19 03:47 - SOCIAL HX Smoking History: chew Alcohol Use: heavy Drug Use: none - FAMILY HX Family History: No - VITAL SIGNS Vital Signs: Vital Signs Temp Pulse Resp BP Pulse Ox 131/93 04/19/19 21:45 - REVIEWED ASSESSMENTS Nursing Assessment Reviewed: Yes Vitals Reviewed: Yes Progress - Progress Progress: 05:30 patient feeling better ED Results Lab/Radiology - Orders Orders: ED Orders Category Date Time Status Place IV Lock 1T Care 08/23/19 04:31 Active ALCOHOL MEDICAL USE ONLY Stat Lab 08/23/19 04:38 Received CBC/PLATELET/DIFF Routine Lab 08/23/19 04:39 Received CMP Routine Lab 08/23/19 04:38 Received Ondansetron HCl/Pf [Zofran] Med 08/23/19 04:40 Once 4 mg IVP NOW ONE Thiamine HCl [Vitamin B-1] 100 mg Med 08/23/19 04:40 Ordered Multivit Infusn,Adult 1,Vit K [M.v.i. Adult] 10 ml Folic Acid [Folvite] 5 mg 0.9 % Sodium Chloride [Normal Saline] 1,000 ml IV NOW General Adult Physical Exam - PHYSICAL EXAM GENERAL APPEARANCE: no distress EENT: eye inspection normal, ENT inspection normal, pharynx normal, no signs of dehydration, JAH, TM's nml NECK: normal inspection RESPIRATORY: breath sounds normal CVS: tachycardia ABDOMEN: soft, normal bowel sounds BACK: normal inspection SKIN: warm/dry, normal color EXTREMITIES: non-tender, normal range of motion NEURO: oriented X3, CN's nml as tested, motor nml, sensation nml Discharge Clincal Impression: ETOH abuse, Hypokalemia Referrals: Primary Doctor,No [Primary Care Provider] - 2 Days Additional Instructions: Decrease alcohol use Increase fluid intake >64oz of water; Gatorade High protein diet Follow up with PCP next week for re-evaluation Condition: Good Disposition: 01 HOME, SELF-CARE Decision to Admit: NO Decision Time: 05:40
[2019-08-23] MEDS ORDERED: POTASSIUM CHLORIDE 20 MEQ TABLET.ER PO ONE (05:36)
[2019-08-23 05:51] VITALS: BP 144/100
[2019-08-23 07:30] LABS: BASOPHILS % 0.9 % (0.0-1.5); NEUTROPHILS # 4.6 # k/uL (1.4-7.7)
[2019-08-23 07:31] LABS: eGFR (Non-African) > 60
== END 2019-08-23 05:45 | disposition home or self-care (01) ==
LOC: ED 04:13
DX: F10.10 Alcohol abuse, uncomplicated (principal); E87.6 Hypokalemia; Y90.9 Presence of alcohol in blood, level not specified
CPT/HCPCS: 80053; 80320; 85025; 96374; 99282; 99284; A9270; J2405; J3411; J3490; J7030; G0480; S1016